=== PATIENT | female | born 1990 | race Caucasian/White ===

== ENCOUNTER 2021-11-06 04:45 | Emergency (ER) | payer OTHER ==
[~2021-11-06] VITALS: Ht 154.9 cm; Wt 103.0 kg
--- NOTE | 2021-11-06 05:05 | EKG ---
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
--- NOTE | 2021-11-06 05:11 | PHYS DOC ---
Past History Past Medical History: No Pertinent History (ZULY MOYA MD) Past Surgical History: No Surgical History (ZULY MOYA MD) Smoking: Non-smoker Alcohol Use: Occasionally Drug Use: None (ZULY MOYA MD) Adult General HPI HPI Patient is a 31-year-old female who presents to the emergency department with a chief complaint of acute onset epigastric and right upper quadrant pain, 8 out of 10, sharp in nature with radiation to her back. States she had a similar episode a couple weeks ago which resolved on its own in a couple of hours. States she does have some nausea. States she is otherwise healthy, takes no medications. Denies any recent traumas, travels, illnesses, fevers, chest pain, shortness of breath, vomiting, dysuria, hematuria, blood in the stool or diarrhea. Denies any history of STIs, vaginal bleeding, discharge or pain. (ZULY MOYA MD) Review of Systems Review of Systems Constitutional: Denies fever or chills [] Eyes: Denies change in visual acuity, redness, or eye pain [] HENT: Denies nasal congestion or sore throat [] Respiratory: Denies cough or shortness of breath [] Cardiovascular: No additional information not addressed in HPI [] GI: Denies abdominal pain, nausea, vomiting, bloody stools or diarrhea [] : Denies dysuria or hematuria [] Musculoskeletal: Denies back pain or joint pain [] Integument: Denies rash or skin lesions [] Neurologic: Denies headache, focal weakness or sensory changes [] Endocrine: Denies polyuria or polydipsia [] All other systems were reviewed and found to be within normal limits, except as documented in this note. (ZULY MOYA MD) Allergies Allergies Allergies Coded Allergies Type Severity Reaction Last Updated Verified No Known Drug Allergies 09/18/13 No (ZULY MOYA MD) Physical Exam Physical Exam Constitutional: Well developed, well nourished, no acute distress, non-toxic appearance. [] HENT: Normocephalic, atraumatic, bilateral external ears normal, oropharynx moist, no oral exudates, nose normal. [] Eyes: conjunctiva normal, no discharge. [] Neck: Normal range of motion, no tenderness, supple, no stridor. [] Cardiovascular:Heart rate regular rhythm, no murmur [] Lungs & Thorax: Bilateral breath sounds clear to auscultation [] Abdomen: soft, epigastric and right upper quadrant tenderness, no guarding, mi ld rebound, no masses, no pulsatile masses. [] Skin: Warm, dry, no erythema, no rash. [] Back: no CVA tenderness. [] Extremities: No tenderness, no cyanosis, no clubbing, ROM intact, no edema. [] Neurologic: Alert and oriented X 3, no focal deficits noted. [] Psychologic: Affect normal, judgement normal, mood normal. [] (ZULY MOYA MD) Current Patient Data Vital Signs Vital Signs Date Time Temp Pulse Resp B/P (MAP) Pulse Ox O2 Delivery O2 Flow Rate FiO2 11/06/21 04:50 97.5 94 28 144/89 (107) 100 Room Air Vital Signs Date Time Temp Pulse Resp B/P (MAP) Pulse Ox O2 Delivery O2 Flow Rate FiO2 11/06/21 04:50 97.5 94 28 144/89 (107) 100 Room Air Lab Results Laboratory Tests Test 11/06/21 05:08 11/06/21 05:11 White Blood Count 9.9 x10^3/uL Red Blood Count 4.06 x10^6/uL Hemoglobin 10.8 g/dL Hematocrit 33.8 % Mean Corpuscular Volume 83 fL Mean Corpuscular Hemoglobin 27 pg Mean Corpuscular Hemoglobin Concent 32 g/dL Red Cell Distribution Width 15.6 % Platelet Count 445 x10^3/uL Neutrophils (%) (Auto) 68 % Lymphocytes (%) (Auto) 21 % Monocytes (%) (Auto) 10 % Eosinophils (%) (Auto) 1 % Basophils (%) (Auto) 1 % Neutrophils # (Auto) 6.7 x10^3uL Lymphocytes # (Auto) 2.0 x10^3/uL Monocytes # (Auto) 1.0 x10^3/uL Eosinophils # (Auto) 0.1 x10^3/uL Basophils # (Auto) 0.0 x10^3/uL Sodium Level 143 mmol/L Potassium Level 3.9 mmol/L Chloride Level 104 mmol/L Carbon Dioxide Level 27 mmol/L Anion Gap 12 Blood Urea Nitrogen 12 mg/dL Creatinine 0.8 mg/dL Estimated GFR (Cockcroft-Gault) 84.2 BUN/Creatinine Ratio 15 Glucose Level 107 mg/dL Calcium Level 9.0 mg/dL Total Bilirubin 0.2 mg/dL Aspartate Amino Transf (AST/SGOT) 18 U/L Alanine Aminotransferase (ALT/SGPT) 27 U/L Alkaline Phosphatase 121 U/L Troponin I High Sensitivity < 4 ng/L Total Protein 8.0 g/dL Albumin 4.1 g/dL Albumin/Globulin Ratio 1.1 Lipase 129 U/L Urine Collection Type Unknown Urine Color Yellow Urine Clarity Clear Urine pH 6.0 Urine Specific [place] >=1.030 Urine Protein Neg Urine Glucose (UA) Neg mg/dL Urine Ketones (Stick) Neg mg/dL Urine Blood Neg Urine Nitrite Neg Urine Bilirubin Neg Urine Urobilinogen Dipstick 0.2 mg/dL Urine Leukocyte Esterase Neg Urine RBC 0 /HPF Urine WBC 1-4 /HPF Urine Squamous Epithelial Cells Many /LPF Urine Bacteria Few /HPF Urine Mucus Slight /LPF Urine Test Negative Current Medications Medications (Trade) Dose Ordered Sig/Gordon Route PRN Reason Start Time Stop Time Status Last Admin Dose Admin Morphine Sulfate (Morphine 4mg Syringe) 4 mg 1X ONCE IV 11/06/21 05:30 11/06/21 05:31 DC 11/06/21 05:20 Ondansetron HCl (Zofran) 4 mg 1X ONCE IVP 11/06/21 05:30 11/06/21 05:31 DC 11/06/21 05:19 Iohexol (Omnipaque 300 Mg/ml) 75 ml 1X ONCE IV 11/06/21 05:30 11/06/21 05:31 DC 11/06/21 05:25 Info (Do NOT chart on this entry -- for MONITORING) 1 each PRN DAILY PRN MC SEE COMMENTS 11/06/21 05:15 11/08/21 05:14 Ketorolac Tromethamine (Toradol 15mg Vial) 15 mg 1X ONCE IVP 11/06/21 06:30 11/06/21 06:31 11/06/21 05:54 Morphine Sulfate (Morphine 4mg Syringe) 4 mg 1X ONCE IV 11/06/21 06:30 11/06/21 06:31 11/06/21 05:55 (SHAVON CHRISTOPHER DO) EKG EKG [] (ZULY MOYA MD) Radiology/Procedures Radiology/Procedures [] (ZULY MOYA MD) Radiology/Procedures CT OF THE ABDOMEN AND PELVIS WITH IV CONTRAST. History: Reason: OMNI 300,75ML IV.Acute epigastric/RUQ pain.NO SX OR INJURY / Spl. Instructions: / History: Comparison:None. Procedure: Contiguous axial images of the abdomen and pelvis were performed after the administration of 75 cc of Isovue 370 IV contrast. Oral contrast: No. Findings: The gallbladder is fairly distended and has a single small stone but otherwise appears normal. The appendix is normal. Liver: Unremarkable Spleen: Unremarkable Pancreas: Unremarkable Adrenal Glands: Unremarkable Kidneys: Unremarkable There is no mass or lymphadenopathy. There is no free air. There is no free fluid. The urinary bladder is collapsed and not well evaluated. Impression: No acute findings. End Impression (SHAVON CHRISTOPHER DO) Heart Score C/O Chest Pain: No Risk Factors: Risk Factors: DM, Current or recent (<one month) smoker, HTN, HLP, family history of CAD, obesity. Risk Scores: Risk Factors: DM, Current or recent (<one month) smoker, HTN, HLP, family history of CAD, obesity. (ZULY MOYA MD) C/O Chest Pain: No (SHAVON CHRISTOPHER DO) Course & Med Decision Making Course & Med Decision Making Patient is a 31-year-old female who presents with acute onset epigastric/right upper quadrant pain Vital signs not concerning. Physical exam noted above. Patient placed on the monitor with IV access established. Given pain and nausea medicine. Labs and CT pending. Patient care and disposition transferred to day team. (ZULY MOYA MD) Course & Med Decision Making I assumed care of patient after comprehensive ER signout from outgoing physician. I personally saw patient and repeated aspects of history and physical exam. I reviewed entirety of ER work-up that was nonconcerning for any emergent or surgical issues Disclosed no indication for further diagnostic work-up and/or hospitalization. Joint decision made to discharge home with continued supportive care practices and new prescriptions for nausea and stomach acid levels Advised patient follow-up with primary care physician and establish care with outpatient senior internet sales consultant versus general surgeon for further diagnostic work-up for undifferentiated upper abdominal pain that is likely right upper quadrant in etiology Strict return precautions discussed at length with good understanding by patient and at bedside, all questions and concerns addressed prior to ER d eparture (SHAVON CHRISTOPHER DO) Dragon Disclaimer Dragon Disclaimer This electronic medical record was generated, in whole or in part, using a voice recognition dictation system. (ZULY MOYA MD) Departure Departure: Impression: Primary Impression: Abdominal pain Disposition: HOME / SELF CARE / HOMELESS Condition: STABLE Referrals: PCP,SHEILA (PCP) ZANA CHEEK THOMAS W MD Patient Instructions: Abdominal Pain, Women, Diet for Gastroesophageal Reflux Disease, Adult Additional Instructions: You have been evaluated in the Emergency Department today for abdominal pain. Your evaluation was not suggestive of any emergent condition requiring medical intervention at this time. However, some abdominal problems make take more time to appear. Therefore, it is important for you to watch for any new symptoms or worsening of your current condition. Please contact your primary care physician to review ER visit today. As discussed, and outpatient general surgery consultation is advised for further work-up that might include additional imaging such as MRCP You have been prescribed medications for nausea that should be used as needed. You were also prescribed medication to control stomach acid level which should improve your abdominal pain Please avoid potential triggering ingestion such as alcohol, NSAIDs, caffeine, fatty and/or spicy foods. Return to the Emergency Department if you experience worsening pain, persistent fevers greater than 100.4, recurrent vomiting, blood in vomit, blood in stool, dark tarry stool, chest pain, difficulty breathing, or any other concerning symptoms. Scripts Pantoprazole Sodium (PROTONIX) 20 Mg Tablet.dr 1 TAB PO DAILY for STOMACH ACID LEVELS, #30 TAB Prov: SHAVON CHRISTOPHER DO 11/06/21 Ondansetron (ONDANSETRON ODT) 4 Mg Tab.rapdis 1 TAB PO PRN Q6-8HRS for NAUSEA, #16 TAB Prov: SHAVON CHRISTOPHER DO 11/06/21 ZULY MOYA MD Nov 06, 2021 05:11 SHAVON CHRISTOPHER DO Nov 06, 2021 06:30
[2021-11-06] MEDS ORDERED: CONTRAST GIVEN. MC PRN (05:15)
[2021-11-06 05:21] LABS: BASO % 1 % (0-3); EOS # 0.1 x10^3/uL (0.0-0.7); EOS % 1 % (0-3); HEMATOCRIT 33.8 % (36.0-47.0); HEMOGLOBIN 10.8 g/dL (12.0-15.5); LYMPH % 21 % (24-48); MEAN CORPUSCULAR HEMOGLOBIN 27 pg (25-35); MEAN CORPUSCULAR HGB CONC 32 g/dL (31-37); MEAN CORPUSCULAR VOLUME 83 fL (79-100); MONO % 10 % (0-9); NEUT # 6.7 x10^3uL (1.8-7.7); NEUT % 68 % (31-73); PLATELET COUNT 445 x10^3/uL (140-400); RED BLOOD COUNT 4.06 x10^6/uL (3.50-5.40); RED CELL DISTRIBUTION WIDTH 15.6 % (11.5-14.5); WHITE BLOOD COUNT 9.9 x10^3/uL (4.0-11.0)
[2021-11-06] MEDS ORDERED: IOHEXOL 300 MG/ML 75 ML VIAL. IV ONE (05:30)
[2021-11-06] MEDS ORDERED: MORPHINE SULFATE 4 MG/ML DISP.SYRIN. IV ONE ×2 (05:30→06:30)
[2021-11-06] MEDS ORDERED: ONDANSETRON PF 4 MG/2 ML VIAL. IVP ONE ×2 (05:30→07:00)
[2021-11-06 05:35] LABS: BACTERIA,URINE FEW /HPF (0-FEW); BILIRUBIN,URINE NEG (NEG); CLARITY,URINE CLEAR; COLOR,URINE YELLOW; GLUCOSE,URINE NEG (NEG); NITRITE,URINE NEG (NEG); RBC,URINE 0 /HPF (0-2); SQUAMOUS EPITHELIAL CELL,UR MANY /LPF; UROBILINOGEN,URINE 0.2 mg/dL (0.2 mg/dL)
[2021-11-06 05:35] LABS: CREATININE 0.8 mg/dL (0.6-1.0); GFR 84.2; POTASSIUM 3.9 mmol/L (3.5-5.1)
[2021-11-06 05:36] LABS: U PREG PATIENT NEGATIVE (NEG)
[2021-11-06 05:40] LABS: ALBUMIN 4.1 g/dL (3.4-5.0); ALBUMIN/GLOBULIN RATIO 1.1 (1.0-1.7); TOTAL BILIRUBIN 0.2 mg/dL (0.2-1.0)
--- NOTE | 2021-11-06 06:10 | RAD ---
CT OF THE ABDOMEN AND PELVIS WITH IV CONTRAST. History: Reason: OMNI 300,75ML IV.Acute epigastric/RUQ pain.NO SX OR INJURY / Spl. Instructions: / History: Comparison:None. Procedure: Contiguous axial images of the abdomen and pelvis were performed after the administration of 75 cc o f Isovue 370 IV contrast. Oral contrast: No. Findings: The gallbladder is fairly distended and has a single small stone but otherwise appears normal. The ap pendix is normal. Liver: Unremarkable Spleen: Unremarkable Pancreas: Unremarkable Adrenal Glands: Unremarkable Kidneys: Unremarkable There is no mass or lymphadenopathy. There is no free air. There is no free fluid. The urinary bladder is collapsed and not well evaluated. Impression: No acute findings. End Impression PQRS Compliance Statement: One or more of the following individualized dose reduction techniques were utilized for this examinat ion: 1. Automated exposure control 2. Adjustment of the mA and/or kV according to patient size 3. Use of iterative reconstruction technique Electronically signed by: Ha Martinez III, MD (11/06/2021 6:07 AM) [facility] M
[2021-11-06] MEDS ORDERED: PANT20TA58 PO (06:26)
[2021-11-06] MEDS ORDERED: ONDA4TAB12 PO (06:26)
[2021-11-06] MEDS ORDERED: KETOROLAC 15 MG/ML VIAL. IVP ONE (06:30)
[2021-11-06 06:35] VITALS: BP 113/66
== END 2021-11-06 07:07 | disposition home or self-care (01) ==
LOC: ER 04:45
DX: R10.11 Right upper quadrant pain (principal); R11.0 Nausea
CPT/HCPCS: 36415; 74177; 80053; 81001; 81025; 83690; 84484; 85025; 93005; 96374; 96375; 96376; 99285; J1885; J2270; J2405; J3010; Q9967